=== PATIENT | female | born 1995 | race Caucasian/White ===

== ENCOUNTER 2019-12-31 13:54 | Emergency (ER) | payer OTHER ==
[~2019-12-31] VITALS: Ht 157.5 cm; Wt 72.7 kg
[2019-12-31 14:03] VITALS: BP 136/65
[2019-12-31] MEDS ORDERED: naproxen 500mg tablet PO ONE (15:50)
[2019-12-31] MEDS ORDERED: CYCL-1 PO (15:51)
[2019-12-31] MEDS ORDERED: NAPR-56 PO (15:51)
== END 2019-12-31 16:05 | disposition home or self-care (01) ==
LOC: ER 13:55
DX: S46.812A Strain of other muscles, fascia and tendons at shoulder and upper arm level, left arm, initial encounter (principal); M62.838 Other muscle spasm; F17.200 Nicotine dependence, unspecified, uncomplicated; X50.0XXA Overexertion from strenuous movement or load, initial encounter; Y93.89 Activity, other specified; Y92.89 Other specified places as the place of occurrence of the external cause; Y99.9 Unspecified external cause status
CPT/HCPCS: 73030; 99283

== ENCOUNTER 2024-06-27 12:36 | Emergency (ER) | payer MEDICAID, OTHER ==
[~2024-06-27] VITALS: Ht 165.1 cm; Wt 93.6 kg
[~2024-06-27 12:36] MED LIST: CYCL-1 PO
[2024-06-27] MEDS: mupirocin 2% ointment 22GM TP STA (14:23)
[2024-06-27 14:28] VITALS: BP 110/62; PULSE 64; RESP 16; TEMP 98.9; O2SAT 99
== END 2024-06-27 14:29 | disposition home or self-care (01) ==
LOC: ER 12:36
DX: L02.214 Cutaneous abscess of groin (principal); Z79.899 Other long term (current) drug therapy
CPT/HCPCS: 99282